=== PATIENT | female | born 1985 | race Caucasian/White ===

== ENCOUNTER 2017-12-13 15:14 | Emergency (ER) | payer OTHER ==
[~2017-12-13] VITALS: Wt 72.6 kg
[~2017-12-13 15:14] MED LIST: ANAPROX DS550 MG PO; BIAXIN500 MG PO; CATAFLAM50 MG PO; CIPROFLOXACIN500 MG PO; CLARITIN10 MG PO; HYDROCODONE BIT1 T11 PO; ROBAXIN750 MG PO; XANAX0.25 MG PO; ZOFRAN4 MG PO
== END 2017-12-13 16:18 | disposition home or self-care (01) ==
LOC: ED 15:14
DX: S06.9X9A Unspecified intracranial injury with loss of consciousness of unspecified duration, initial encounter (principal); Z98.890 Other specified postprocedural states; Z79.899 Other long term (current) drug therapy; W22.8XXA Striking against or struck by other objects, initial encounter; Y93.02 Activity, running; Y92.89 Other specified places as the place of occurrence of the external cause; Y99.9 Unspecified external cause status

== ENCOUNTER → 2020-03-22 | Outpatient (CLI) | payer OTHER | END | disposition home or self-care (01) | LOC: US 13:18 | DX: T83.32XA Displacement of intrauterine contraceptive device, initial encounter (principal) ==

== ENCOUNTER → 2020-08-23 | Outpatient (CLI) | payer OTHER ==
[~2020-08-23] MED LIST changes: +Motrin,Rufen800 MG PO; +PERCOCET 5-3251 EACH PO
== END | disposition home or self-care (01) ==
LOC: LAB 12:58
PROVIDERS: ATTEND Obstetrics & Gynecology
DX: Z30.2 Encounter for sterilization (principal)

== ENCOUNTER → 2020-08-23 | Outpatient (CLI) | payer OTHER | END | disposition home or self-care (01) | LOC: COVID19 14:00 | PROVIDERS: ATTEND Obstetrics & Gynecology | DX: Z01.812 Encounter for preprocedural laboratory examination (principal); Z20.822 Contact with and (suspected) exposure to COVID-19 ==

== ENCOUNTER → 2020-08-28 | Day surgery (SDC) | payer OTHER ==
[2020-08-23 13:30] VITALS: BP 121/81
[~2020-08-28] VITALS: Ht 154.9 cm; Wt 74.8 kg
[2020-08-28 08:05] VITALS: BP 119/58
[2020-08-28 09:57] VITALS: BP 94/45
[2020-08-28 10:15] VITALS: BP 103/56
[2020-08-28 10:28] VITALS: BP 96/54
[2020-08-28 10:45] VITALS: BP 109/56
[2020-08-28 11:05] VITALS: BP 96/53
== END ==
LOC: SDC 08-23 13:15
PROVIDERS: ATTEND Obstetrics & Gynecology
DX: Z30.2 Encounter for sterilization (principal); T83.39XA Other mechanical complication of intrauterine contraceptive device, initial encounter; F41.9 Anxiety disorder, unspecified; J45.909 Unspecified asthma, uncomplicated; F32.9 Major depressive disorder, single episode, unspecified; F17.210 Nicotine dependence, cigarettes, uncomplicated; Z88.5 Allergy status to narcotic agent; Z79.899 Other long term (current) drug therapy; Y83.8 Other surgical procedures as the cause of abnormal reaction of the patient, or of later complication, without mention of misadventure at the time of the procedure